=== PATIENT | male | born 1975 | race Hispanic/Latino ===

== ENCOUNTER 2018-05-02 11:17 | Emergency (ER) | payer BC ==
[2018-05-02 11:20] VITALS: BMI 28.5
--- NOTE | 2018-05-02 12:29 | ED PDOC ---
HPI: Psych/Substance Abuse Time Seen by Provider: 05/02/18 11:50 Chief Complaint (Nursing): Psychiatric Evaluation Additional Complaint(s): 42 y/o M with no PMH presents for psych evaluation due to depression/anxiety. 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 He has no actual thoughts of suicide nor does he have a plan but he has been having thoughts of what life would be life if he were not alive. Denies HI, visual or auditory hallucinations. Denies asthma, HTN, HL, DM. Past Medical History Reviewed: Historical Data, Nursing Documentation, Vital Signs Vital Signs: Last Vital Signs Temp 98.5 F 05/02/18 11:20 Pulse 86 05/02/18 11:20 Resp 17 05/02/18 11:20 BP 162/86 H 05/02/18 11:20 Pulse Ox 96 05/02/18 11:20 - Medical History PMH: No Chronic Diseases - Surgical History Surgical History: No Surg Hx - Family History Family History: States: Unknown Family Hx - Living Arrangements Living Arrangements: Alone - Social History Current smoker - smoking cessation education provided: No Ex-Smoker (has not smoked in the last 12 months): No Drugs: Denies - Home Medications Home Medications: Ambulatory Orders Medication Instructions Recorded traZODone [Desyrel] 50 mg PO HS PRN 7 Days tab 05/02/18 - Allergies Allergies/Adverse Reactions: Allergies Allergy/AdvReac Type Severity Reaction Status Date / Time No Known Allergies Allergy Verified 05/02/18 11:27 Review of Systems Cardiovascular: Negative for: Chest Pain, Palpitations Respiratory: Negative for: Cough Gastrointestinal: Negative for: Nausea, Vomiting Physical Exam - Reviewed Nursing Documentation Reviewed: Yes Vital Signs Reviewed: Yes - Physical Exam Appears: Positive for: Well Head Exam: Positive for: ATRAUMATIC Skin: Positive for: Normal Color Eye Exam: Positive for: Normal appearance Neck: Positive for: Supple Cardiovascular/Chest: Positive for: Regular Rate, Rhythm Respiratory: Positive for: Normal Breath Sounds Neurologic/Psych: Positive for: Alert, Oriented, Mood/Affect (flat) - ECG O2 Sat by Pulse Oximetry: 96 Medical Decision Making Medical Decision Making: Crisis evaluation Disposition - Clinical Impression Clinical Impression: Depression - Patient ED Disposition Is Patient to be Admitted: No Counseled Patient/Family Regarding: Diagnosis, Need For Followup, Rx Given - Disposition Disposition: Routine/Home Disposition Time: 12:45 Condition: STABLE Additional Instructions: FOLLOW UP WITH PSYCHIATRIST: DR. KIMBERLY DAI [address] [place], [place] [phone] FOLLOW UP WITH PSYCHOLOGIST: GIANNI YOUNG [address] [facility] [phone] YOU CAN ALSO FOLLOW UP WITH: [facility] [address] [phone] FRIDAY-FRIDAY FROM 9AM-8PM FRIDAY AND FRIDAY FROM 10AM-6PM Prescriptions: traZODone [Desyrel] 50 mg PO HS PRN 7 Days tab PRN Reason: Insomnia Instructions: Depression, Adult (DC) Forms: [employer] (Slovak), [facility] ED School/Work Excuse Print Language: BARBADIAN
[2018-05-02 14:41] VITALS: BP 122/78; PULSE 82; RESP 18; TEMP 98
[2018-05-04 21:36] VITALS: O2SAT 96
== END 2018-05-02 12:45 | disposition home or self-care (01) ==
LOC: H.ER 11:17
DX: F32.9 Major depressive disorder, single episode, unspecified (principal); Z13.31 Encounter for screening for depression; Z79.899 Other long term (current) drug therapy; Z86.59 Personal history of other mental and behavioral disorders; Z87.891 Personal history of nicotine dependence

== ENCOUNTER 2018-05-17 01:15 | Inpatient (IN) | payer BC ==
[2018-05-17 01:20] VITALS: BMI 25.1
--- NOTE | 2018-05-17 02:09 | ED PDOC ---
HPI: Altered Mental Status Time Seen by Provider: 05/17/18 01:18 Chief Complaint (Nursing): Altered Mental Status Chief Complaint (Provider): Altered Mental Status History Per: EMS History/Exam Limitations: Clinical Condition (agitation) Onset/Duration Of Symptoms: Sudden Onset Onset Of Symptoms: Cannot Confirm Onset Current Symptoms Are (Timing): Still Present Additional Complaint(s): 42 year old male arrives to ED with [place] [employer] via EMS for an psychiatric evaluation. As per HPD, his sister called 911 after patient sounded erratic while speaking over the phone. Upon EMS arrival, patient appeared confused with altered mental status. Unable to obtain further medical history secondary to patient's agitated and combative behavior. Of note, patient was seen in this ED on 05/02/18 with diagnosis of depression, stating that he felt extremely overwhelmed and stressed out, then, later discharged with Rx for Trazodone. It is unknown if patient followed up in outpatient therapy or took prescribed medication as advised. PCP: none provided Past Medical History Reviewed: Unable To Obtain - Medical History PMH: Denies: Diabetes, Hepatitis, HIV, HTN, Seizures, Sexually Transmitted Disease - Family History Family History: States: Unknown Family Hx - Home Medications Home Medications: Ambulatory Orders Medication Instructions Recorded traZODone [Desyrel] 50 mg PO HS PRN 7 Days tab 05/02/18 - Allergies Allergies/Adverse Reactions: Allergies Allergy/AdvReac Type Severity Reaction Status Date / Time No Known Allergies Allergy Verified 05/02/18 11:27 Review of Systems Review Of Systems: ROS cannot be obtained secondary to pt's inabilty to answer questions. (agitation) Physical Exam - Reviewed Nursing Documentation Reviewed: Yes Vital Signs Reviewed: Yes - Physical Exam Appears: Positive for: No Acute Distress Head Exam: Positive for: ATRAUMATIC, NORMAL INSPECTION, NORMOCEPHALIC Skin: Positive for: Normal Color Eye Exam: Positive for: Normal appearance, EOMI, PERRL Neck: Positive for: Normal Cardiovascular/Chest: Positive for: Regular Rate, Rhythm Respiratory: Positive for: Normal Breath Sounds. Negative for: Respiratory Distress Extremity: Positive for: Normal ROM (upper/lower) Neurologic/Psych: Positive for: Alert, Mood/Affect (agitated/uncooperative). Negative for: Motor/Sensory Deficits - Laboratory Results Result Diagrams: 05/17/18 02:31 05/17/18 02:31 - Critical Care Total Time (In Min): 30 Documented Critical Care: Time excludes all time spent performint seperately billable procedures Medical Decision Making Medical Decision Making: Initial Impression: 42 year old male with acute agitation in setting of recently diagnosis of depression. Initial Plan: * Labs * Crisis evaluation * Accucheck * 1:1 OBS Time: 0120 --Upon arrival, patient remains agitated and uncooperative. 4-point restraints placed. IM Ativan and Haldol initiated. Time: 137 --Accucheck: 142 mg/dL. Time: 636 --Labs reviewed: no significant clinical abnormality. Upon crisis evaluation, patient will require admission for further treatment of acute depression. Patient is medically stable for psychiatric admission. Counseling was provided and all questions were answered regarding diagnosis. There is agreement to plan of care. Return precautions discussed. Scribe Attestation: Documented by Ying Heredia, acting as a scribe for Luis Eduardo Lares MD. Provider Scribe Attestation: All medical record entries made by the Scribe were at my direction and personally dictated by me. I have reviewed the chart and agree that the record accurately reflects my personal performance of the history, physical exam, medical decision making, and the department course for this patient. I have also personally directed, reviewed, and agree with the discharge instructions and disposition. Disposition - Clinical Impression Clinical Impression: Depression - Patient ED Disposition Is Patient to be Admitted: Yes Counseled Patient/Family Regarding: Studies Performed, Diagnosis - Disposition Disposition Time: 06:37 Condition: STABLE Forms: [employer] (Urdu)
[2018-05-17 02:36] LABS: BASO # 0.1 K/uL (0.0-0.2); BASO % 0.5 % (0.0-2.0); EOS # 0.1 K/uL (0.0-0.7); EOS % 0.7 % (0.0-4.0); HEMOGLOBIN 15.2 g/dL (12.0-18.0); LYMPH # 2.4 K/uL (1.0-4.3); MEAN CORPUSCULAR HEMOGLOBIN 30.2 pg (27.0-31.0); MEAN CORPUSCULAR HGB CONC 32.4 g/dL (33.0-37.0); MEAN PLATELET VOLUME 10.7 fl (7.2-11.7); MONO % 8.6 % (0.0-10.0); NEUT # 7.8 K/uL (1.8-7.0); NEUT % 69.2 % (50.0-75.0); NRBC % 0.1 % (0.0-0.0); RBC 5.04 Mil/uL (4.40-5.90); RED CELL DISTRIBUTION WIDTH 13.6 % (11.5-14.5); WHITE BLOOD COUNT 11.3 K/uL (4.8-10.8)
[2018-05-17 02:39] LABS: PROTHROMBIN TIME 11.2 Seconds (9.8-13.1)
[2018-05-17 02:41] LABS: PARTIAL THROMBOPLASTIN TIME 24.3 Seconds (25.6-37.1)
[2018-05-17 02:44] LABS: ACETAMINOPHEN < 10.0 ug/ml (10.0-30.0); ALB/GLOB RATIO 1.4 (1.0-2.1); ALBUMIN 4.9 g/dL (3.5-5.0); ALT/SGPT 93 U/L (21-72); AST/SGOT 104 U/L (17-59); BLOOD UREA NITROGEN 12 mg/dl (9-20); CALCIUM 9.8 mg/dL (8.4-10.2); GFR NON-AFRICAN AMERICAN > 60; SALICYLATE < 1.0 mg/dl
[2018-05-17] MEDS ORDERED: Alum-Mag Hydrox-Simethicone Susp (30 mL) PO PRN (07:30)
[2018-05-17] MEDS ORDERED: DiphenhydrAMINE 50 mg/ml Inj IM PRN (07:30)
[2018-05-17] MEDS ORDERED: Magnesium Hydroxide Susp 30 ml UD PO PRN (07:30)
[2018-05-17 08:16] VITALS: O2SAT 99
[2018-05-17 08:35] LABS: BARBITURATES, UR NEGATIVE (NEGATIVE); BENZODIAZEPINES, UR NEGATIVE (NEGATIVE); OPIATES, UR NEGATIVE (NEGATIVE); PHENCYCLIDINE, UR NEGATIVE (NEGATIVE)
[2018-05-17 09:58] LABS: URINE BILIRUBIN NEGATIVE (NEGATIVE); URINE BLOOD MODERATE (NEGATIVE); URINE CALCIUM OXALATE CRYSTALS FEW /hpf (<OCC); URINE CLARITY CLOUDY (Clear); URINE COLOR YELLOW (YELLOW); URINE GLUCOSE (UA) NEG (NEGATIVE); URINE LEUKOCYTE ESTERASE NEG Leu/uL (Negative); URINE PROTEIN NEGATIVE (NEGATIVE); URINE UROBILINOGEN 0.2-1.0 mg/dL (0.2-1.0)
--- NOTE | 2018-05-17 10:39 | PCM.PSYCH ---
Initial Psychiatric Evaluation - Initial Psychiatric Evaluation Type of Admission: Voluntary Legal Status: Capacity Chief Complaint (in patient's own words): "I took a bottle of tums." Patient's Reaction to Hospitalization: HPI: 42 yo male w/ h/o depression, presents s/p intentional overdose of a bottle of tums as a suicide attempt. He reports that he has been feeling increasingly depressed, anxious and hopeless. He currently has tangential/circumstantial speech. He reports hearing auditory hallucinations of music a few days ago. He is agreeable to treatment with antidepressants but not an antipsychotic at this time. NO VH/HI. He is able to contract for safety at this time. PPHx: H/o treatment with Prozac while he was in college; no current psychiatric medications or treatment. Denies psychiatric history of admission or previous suicide attempts. PMHx: Glaucoma ALL: NKDA SHx: Denies drugs/etoh/cig use; lives alone Current Medications: Active Medications Generic Name Dose Route Start Last Admin Trade Name Freq PRN Reason Stop Dose Admin Acetaminophen 650 mg 05/17/18 07:30 Tylenol 325mg Tab PO Q4 PRN Pain, moderate (4-7) Al Hydrox/Mg Hydrox/Simethicone 30 ml 05/17/18 07:30 Maalox Plus 30 Ml PO Q4 PRN Dyspepsia Diphenhydramine HCl 50 mg 05/17/18 07:30 Benadryl IM Q6 PRN Extrapyramidal S/S Unable PO Diphenhydramine HCl 50 mg 05/17/18 07:30 Benadryl PO Q6 PRN Extrapyramidal Symptoms Haloperidol 5 mg 05/17/18 07:30 Haldol PO Q4 PRN Agitation Haloperidol Lactate 5 mg 05/17/18 07:30 Haldol IM Q4 PRN Agitation, Unable to Take PO Lorazepam 2 mg 05/17/18 07:30 Ativan IM Q4 PRN Anxiety/Agitation,Unable PO Magnesium Hydroxide 30 ml 05/17/18 07:30 Milk Of Magnesia PO HS PRN Constipation Past Psychiatric History - Past Psychiatric History Pertinent Medical Hx (Current Medical&Sleep Prob, Allergies): Allergies Allergy/AdvReac Type Severity Reaction Status Date / Time No Known Allergies Allergy Verified 05/02/18 11:27 No Known Home Med 05/17/18 Review of Systems - Psychiatric Psychiatric: Abnormal Sleep Pattern, Anxiety, Auditory Hallucinations, Behavioral Changes, Change in Appetite, Depression, Difficulty Concentrating, Hallucinations, Hopelessness, Suicidal Ideation Mental Status Examination - Personal Presentation Personal Presentation: Looks stated age - Affect Affect: Constricted, Depressed - Motor Activity Motor Activity: Psychomotor Agitation - Reliability in Providing Information Reliability in Providing Information: Fair - Speech Speech: Tangential - Mood Mood: Depressed, Anxious - Formal Thought Process Formal Thought Process: Circumstantial - Hallucinations/Delusions Additional comments: Denies acute AH/VH/paranoia - Obsessions/Compulsions Obsessions: No Compulsions: No - Cognitive Functions Orientation: Person, Place, Situation, Time Sensorium: Alert Attention/Concentration: Attentive Judgement: Intact, as evidence by: Insight regarding need for hospitalization Memory: Recent intact, as evidence by: Ability to recall events of the day, Remote intact, as evidenced by: Abilit to recall sig. 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
--- NOTE | 2018-05-17 12:58 | RAD ---
Date of service: 05/17/2018 HISTORY: admit COMPARISON: No prior. FINDINGS: LUNGS: No active pulmonary disease. PLEURA: No significant pleural effusion identified, no pneumothorax apparent. CARDIOVASCULAR: No atherosclerotic calcification present Normal. OSSEOUS STRUCTURES: No significant abnormalities. VISUALIZED UPPER ABDOMEN: Normal. OTHER FINDINGS: None. IMPRESSION: No active disease.
--- NOTE | 2018-05-17 13:43 | CP.PCM.CON ---
History of Present Illness - History of Present Illness History of Present Illness: 42 yo male with history of depression and glaucoma admitted to psyche unit because of suicidal attempt by taking a bottle of Tums Review of Systems - Review of Systems All systems: reviewed and no additional remarkable complaints except (aside from those mentioned above, 12 point system review were negative by me) Past Patient History - Tetanus Immunizations Tetanus Immunization: Unknown - Past Social History Smoking Status: Never Smoked Chewing Tobacco Use: No Cigar Use: No Alcohol: Occasional Drugs: Denies - CARDIAC Hx Cardiac Disorders: No - PULMONARY Hx Tuberculosis: No - NEUROLOGICAL Hx Seizures: No - HEMATOLOGICAL/ONCOLOGICAL Hx Human Immunodeficiency Virus (HIV): No - GENITOURINARY/GYNECOLOGICAL Hx Sexually Transmitted Disorders: No - PSYCHIATRIC Hx Substance Use: No - SURGICAL HISTORY Hx Surgeries: No - ANESTHESIA Hx Anesthesia: No Meds Allergies/Adverse Reactions: Allergies Allergy/AdvReac Type Severity Reaction Status Date / Time No Known Allergies Allergy Verified 05/02/18 11:27 - Medications Medications: Current Medications Al Hydrox/Mg Hydrox/Simethicone (Maalox Plus 30 Ml) 30 ml PO Q4 PRN PRN Reason: Dyspepsia Diphenhydramine HCl (Benadryl) 50 mg IM Q6 PRN PRN Reason: Extrapyramidal S/S Unable PO Diphenhydramine HCl (Benadryl) 50 mg PO Q6 PRN PRN Reason: Extrapyramidal Symptoms Escitalopram Oxalate (Lexapro) 10 mg PO DAILY SHERIF Haloperidol (Haldol) 5 mg PO Q4 PRN PRN Reason: Agitation Haloperidol Lactate (Haldol) 5 mg IM Q4 PRN PRN Reason: Agitation, Unable to Take PO Ibuprofen (Motrin Tab) 400 mg PO Q6 PRN PRN Reason: Pain, moderate (4-7) Lorazepam (Ativan) 2 mg IM Q4 PRN PRN Reason: Anxiety/Agitation,Unable PO Lorazepam (Ativan) 1 mg PO Q8 PRN PRN Reason: Anxiety Last Admin: 05/17/18 11:13 Dose: 1 mg Magnesium Hydroxide (Milk Of Magnesia) 30 ml PO HS PRN PRN Reason: Constipation Risperidone (Risperdal Tab) 0.5 mg PO HS PRN PRN Reason: Psychosis Physical Exam - Constitutional Appears: No Acute Distress - Head Exam Head Exam: ATRAUMATIC - Eye Exam Eye Exam: absent: Scleral icterus - ENT Exam ENT Exam: Mucous Membranes Moist - Neck Exam Neck exam: Negative for: Meningismus - Respiratory Exam Respiratory Exam: absent: Rales, Rhonchi, Wheezes, Respiratory Distress - Cardiovascular Exam Cardiovascular Exam: REGULAR RHYTHM, +S1, +S2 - GI/Abdominal Exam GI & Abdominal Exam: Soft. absent: Tenderness - Rectal Exam Rectal Exam: Deferred - Extremities Exam Extremities exam: Negative for: pedal edema - Back Exam Back exam: NORMAL INSPECTION - Neurological Exam Neurological exam: Alert, Oriented x3 - Psychiatric Exam Psychiatric exam: Normal Mood - Skin Skin Exam: Dry, Intact Results - Vital Signs Recent Vital Signs: Last Vital Signs Temp 98.6 F 05/17/18 10:20 Pulse 88 05/17/18 10:20 Resp 17 05/17/18 10:20 BP 157/74 H 05/17/18 10:20 Pulse Ox 99 05/17/18 07:15 - Labs Result Diagrams: 05/17/18 02:31 05/17/18 02:31 Labs: Laboratory Results - last 24 hr 05/17/18 05/17/18 05/17/18 01:20 02:31 02:31 WBC 11.3 H RBC 5.04 Hgb 15.2 Hct 46.9 MCV 93.0 MCH 30.2 MCHC 32.4 L RDW 13.6 Plt Count 265 MPV 10.7 Neut % (Auto) 69.2 Lymph % (Auto) 21.0 [place] % (Auto) 8.6 Eos % (Auto) 0.7 Baso % (Auto) 0.5 Neut # (Auto) 7.8 H Lymph # (Auto) 2.4 Fannin # (Auto) 1.0 H Eos # (Auto) 0.1 Baso # (Auto) 0.1 PT INR APTT Sodium 136 Potassium 3.6 Chloride 94 L Carbon Dioxide 17 L Anion Gap 29 H BUN 12 Creatinine 1.0 Est GFR ( Amer) > 60 Est GFR (Non-Af Amer) > 60 POC Glucose (mg/dL) 142 H Random Glucose 152 H Calcium 9.8 Magnesium 2.2 Total Bilirubin 0.5 AST 104 H ALT 93 H Alkaline Phosphatase 67 Total Protein 8.3 H Albumin 4.9 Globulin 3.4 Albumin/Globulin Ratio 1.4 Urine Color Urine Clarity Urine pH Ur Specific [place] Urine Protein Urine Glucose (UA) Urine Ketones Urine Blood Urine Nitrate Urine Bilirubin Urine Urobilinogen Ur Leukocyte Esterase Urine RBC (Auto) Urine Microscopic WBC Calcium Oxalate Crystal Hyaline Casts Salicylates Urine Opiates Screen Urine Methadone Screen Acetaminophen Ur Barbiturates Screen Ur Phencyclidine Scrn Ur Amphetamines Screen U Benzodiazepines Scrn U Oth Cocaine Metabols U Cannabinoids Screen Alcohol, Quantitative < 10 05/17/18 05/17/18 05/17/18 02:31 02:31 05:52 WBC RBC Hgb Hct MCV MCH MCHC RDW Plt Count MPV Neut % (Auto) Lymph % (Auto) [place] % (Auto) Eos % (Auto) Baso % (Auto) Neut # (Auto) Lymph # (Auto) [place]ann[place] # (Auto) Eos # (Auto) Baso # (Auto) PT 11.2 INR 1.0 APTT 24.3 L Sodium Potassium Chloride Carbon Dioxide Anion Gap BUN Creatinine Est GFR ( Amer) Est GFR (Non-Af Amer) POC Glucose (mg/dL) Random Glucose Calcium 9.4 Magnesium Total Bilirubin AST ALT Alkaline Phosphatase Total Protein Albumin Globulin Albumin/Globulin Ratio Urine Color Urine Clarity Urine pH Ur Specific [place] Urine Protein Urine Glucose (UA) Urine Ketones Urine Blood Urine Nitrate Urine Bilirubin Urine Urobilinogen Ur Leukocyte Esterase Urine RBC (Auto) Urine Microscopic WBC Calcium Oxalate Crystal Hyaline Casts Salicylates < 1.0 Urine Opiates Screen Urine Methadone Screen Acetaminophen < 10.0 L Ur Barbiturates Screen Ur Phencyclidine Scrn Ur Amphetamines Screen U Benzodiazepines Scrn U Oth Cocaine Metabols U Cannabinoids Screen Alcohol, Quantitative 05/17/18 05/17/18 07:30 07:30 WBC RBC Hgb Hct MCV MCH MCHC RDW Plt Count MPV Neut % (Auto) Lymph % (Auto) [place] % (Auto) Eos % (Auto) Baso % (Auto) Neut # (Auto) Lymph # (Auto) [place] # (Auto) Eos # (Auto) Baso # (Auto) PT INR APTT Sodium Potassium Chloride Carbon Dioxide Anion Gap BUN Creatinine Est GFR ( Amer) Est GFR (Non-Af Amer) POC Glucose (mg/dL) Random Glucose Calcium Magnesium Total Bilirubin AST ALT Alkaline Phosphatase Total Protein Albumin Globulin Albumin/Globulin Ratio Urine Color Yellow Urine Clarity Cloudy Urine pH 6.0 Ur Specific [place] 1.014 Urine Protein Negative Urine Glucose (UA) Neg Urine Ketones 20 Urine Blood Moderate Urine Nitrate Negative Urine Bilirubin Negative Urine Urobilinogen 0.2-1.0 Ur Leukocyte Esterase Neg Urine RBC (Auto) 25 H Urine Microscopic WBC 3 Calcium Oxalate Crystal Few H Hyaline Casts 3-5 H Salicylates Urine Opiates Screen Negative Urine Methadone Screen Negative Acetaminophen Ur Barbiturates Screen Negative Ur Phencyclidine Scrn Negative Ur Amphetamines Screen Negative U Benzodiazepines Scrn Negative U Oth Cocaine Metabols Negative U Cannabinoids Screen Negative Alcohol, Quantitative Assessment & Plan (1) Suicide attempt Status: Acute Comment: psyche is managing (2) Glaucoma Status: Acute Comment: follow up patient's with eye doctor as outpatient
--- NOTE | 2018-05-17 14:19 | PCM.BM ---
<Khai,Adelaide - Last Filed: 05/17/18 14:16> Treatment Plan Problems - Problems identified on initial assessmt Hopelessness/Helplessness Date Initiated: 05/17/18 Time Initiated: 14:17 Assessment reference: NA Status: Active Altered Sleep Patterns Date Initiated: 05/17/18 Time Initiated: 14:17 Assessment reference: NA Status: Active Social Isolation Date Initiated: 05/17/18 Time Initiated: 14:18 Assessment reference: NA Status: Active Treatment assets and liabiliti Patient Assests: educated, good support system Patient Liabilities: live alone - Milieu Protocol Maintain good personal hygiene: daily Encourage regular showers, every shift Remind patient to perform daily oral care, every shift Assist patient to perform ADL's Conduct patient checks and document Observation sheet: Q15 minutes Maintain personal safety: every shift Educate patient to report safety concerns to staff, every shift Monitor environment for contraband/sharps Medication safety: Monitor for expected outcome, potential side effects: every shift, Assess barriers to learning: every shift, Assess readiness for medication education: every shift Milieu Narrative: Major Depressive Disorder w/ Psychotic Features -Admit to psychiatry unit -Medicine consult -Individual and group therapy -Start Lexapro -Pt not agreeable to treatment w/ antipsychotics at this time -Psychoeducation -Disposition planning Discharge/Continuing Care - Treatment Team Participation Patient/Family/SO Statement: Major Depressive Disorder w/ Psychotic Features -Admit to psychiatry unit -Medicine consult -Individual and group therapy -Start Lexapro -Pt not agreeable to treatment w/ antipsychotics at this time -Psychoeducation -Disposition planning <Sarah Beth Snyder - Last Filed: 05/18/18 15:10> Treatment assets and liabiliti Patient Assests: adapts well, cooperative, educated, resourceful, self-reliant, ADL independent, physically healthy, negotiates basic needs, good past tx response (As per collateral collected from pts sister, pt. experienced a similar episode during his freshmen year of college secondary to school related stress and sudden of parents (cancer). Pt. received outpatient mental health services for a short period of time. ), cognitively intact Patient Liabilities: live alone Family Contact Family involvement: Family/SO is involved Family contact: Patient agrees to contact, Family has been contacted by patient, Telephone contact initiated by staff Family contact name: Magda(sister)([phone]) Family contacted how many times per week?: 2 Family contact comment: Mobile Electronics Installer placed call to pts sister to discuss pts progress on 3NP, collect further collateral and address family concerns. Phone rang without option for functional tester typewriters to leave voicemail. Mobile [employer] Installer to attempt call at later time. Dr. Akins has been in cmmunication withpts sister, as per Dr. Akins. Collateral collected - Goals for Treatment Patient goals for treatment: Patient to continue stabilization on 3NP through medication management and group/supportive therapy to address sxs of depression to eliminate sxs of psychosis (organization/spontaneity of thought process, paranoia) and SI. Patient to be encouraged to attend groups regularly to promote self-awareness, reality testing, and improve insight, compliance, coping skills and self-esteem. Patient to be provided with referral for appropriate level of aftercare to reduce risk of future hospitalizations and ensure safety in the community. Pt. identified being able to "handle stressful situations and do well at work" as tx goal. Discharge/Continuing Care - Education Needs Education Needs: Patient Medication, Patient Diagnosis/Disease Process, Patient Coping Skills, Patient Community resources, Patient Aftercare Safety Plan - Discharge Discharge Criteria: Tolerates medication w/o severe side effects, Free of Suicidal thoughts, Free of paranoid thoughts, Normal sleep pattern, Ability to care for self, Other Discharge to:: Home, Other (OPS) - Treatment Team Participation Patient/Family/SO Statement: 05/18/18 15:15 Patient attended tx team this morning to discuss progress of 3NP and tx goals. Pt. continues to report sxs of depression and anxiety and continues to present with sxs of psychosis. Thought process is circumstantial and tangential. Thought blocking and mild psychomotor retardation noted. Responses delayed. Pt. exhibited paranoia towards tx team this morning as exhibited by looking around the room, staring at tx team staff members, hesitating to sign tx plan. Pt. exhibited difficulties providing collateral regarding sxs leading to admission. Pt. denies current SI/HI and is able to contract for safety on 3NP. Pt. discharge focused and requesting to be discharged. Mobile [employer] Installer provided psychoeducation regarding importance of further stabilization to ensure safety and improve functioning in the community and secure appropriate aftercare to r educe risk of future hospitalizations. 48 hour notice, screening process, and possible commitment discussed. Pt. declined. Recommended medication regimen and importance of aftercare discussed at length. Discussed with Family/SO: Yes Was Patient/Family/SO present at Treatment Team Meeting: Yes <Tiera Akins - Last Filed: 05/19/18 12:01> - Diagnosis (1) Depression Status: Acute Interventions: 05/19/18 12:01 psychotherapy pharmacotherapy
--- NOTE | 2018-05-17 21:36 | CARD ---
APPROVED REPORT Date of service: 05/17/2018 EKG Measurement Heart [id number] <Conclusion> Normal sinus rhythm Normal ECG
[2018-05-18 06:15] LABS: BASO % 0.7 % (0.0-2.0); EOS # 0.1 K/uL (0.0-0.7); EOS % 2.2 % (0.0-4.0); HEMOGLOBIN 13.8 g/dL (12.0-18.0); LYMPH # 1.9 K/uL (1.0-4.3); LYMPH % 34.6 % (20.0-40.0); MEAN CELL VOLUME 93.1 fl (80.0-94.0); MEAN CORPUSCULAR HEMOGLOBIN 30.8 pg (27.0-31.0); MEAN CORPUSCULAR HGB CONC 33.1 g/dL (33.0-37.0); MEAN PLATELET VOLUME 9.7 fl (7.2-11.7); MONO # 0.5 K/uL (0.0-0.8); NEUT % 53.5 % (50.0-75.0); NRBC % 0.1 % (0.0-0.0); RBC 4.48 Mil/uL (4.40-5.90); RED CELL DISTRIBUTION WIDTH 13.4 % (11.5-14.5); WHITE BLOOD COUNT 5.6 K/uL (4.8-10.8)
[2018-05-18 06:40] LABS: LDL CHOLESTEROL 87 mg/dL (0-129)
[2018-05-18 06:43] LABS: T4 7.87 ug/dl (5.5-11.0)
[2018-05-18 06:45] LABS: ALB/GLOB RATIO 1.3 (1.0-2.1); ALBUMIN 3.8 g/dL (3.5-5.0); ALT/SGPT 74 U/L (21-72); AST/SGOT 69 U/L (17-59); BLOOD UREA NITROGEN 11 mg/dl (9-20); CALCIUM 9.2 mg/dL (8.4-10.2); GFR NON-AFRICAN AMERICAN > 60; HDL CHOLESTEROL 43 MG/DL (30-70)
--- NOTE | 2018-05-18 14:29 | PCM.PYCHPN ---
Psychiatric Progress Note - Psychiatric Progress Note Patient seen today, length of contact: pt evaluated discussed with team chart reviewed Patient Chief Complaint: I got overwhelmed Problems Identified/Issues Discussed: pt evaluated with treatment team and collateral information obtained from sister upon pt consent pt on evaluation guarded and paranoid, thought process tangential , speech overproductive and not goal directed, pt hesitant about receiving treatment nad medications , psychoeducation provided discussing with patient importance of medication, pt reported poor sleep with intermittent insomnia pt also reporting feeling overwhelmed with pressure at work, low energy anhedonia poor motivation, passive suicidal ideation without active plan to hurt self on the unit' denied command hallucinations, denied side effects of medications Medication Change: Yes (start abilify) Medical Record Reviewed: Yes Mental Status Examination - Cognitive Function Orientation: Person, Place, Situation, Time Attention: Poor Concentration: Poor Association: Loose Decription of patient's judgement and insights: poor insight and fair judgment - Mood Mood: Depressed, Anxious - Affect Affect: Constricted, Depressed - Speech Speech: Soft, Pressured - Formal Thought Process Formal Thought Process: Delusions, Paranoia, Circumstantial - Suicidal Ideation Suicidal Ideation: Yes - Homicidal Ideation Homicidal Ideation: No Goal/Treatment Plan - Goal/Treatment Plan Need for Continued Stay: Severe depression anxiety, Discharge may exacerbated symptoms Progress Toward Problem(s) and Goals/Treatment Plan: continuewith lexapro 10mg start abilify 2mg qhs encourage medication compliance and attending groups
[2018-05-18 18:12] LABS: FOLATE 16.5 ng/mL
[2018-05-18] MEDS ORDERED: Risperidone M tab 1 MG PO SCH (22:00)
--- NOTE | 2018-05-19 12:09 | PCM.PYCHPN ---
Psychiatric Progress Note - Psychiatric Progress Note Patient seen today, length of contact: pt evaluated discussed with team chart reviewed Patient Chief Complaint: I am worried about my work Problems Identified/Issues Discussed: pt evaluated , less anxious speech less pressured and thought process more goal directed , continues to be circumstantial, patient less paranoid and less guarded , continues to be worried about loosing his job, CBT provided discussed with patient the way to challenge automatic negative thoughts, patient receptive to therapy, yet needs continuous reassurance , reported improved sleep, no reported side effects of medications, discussed increasing the dose of abilify to 5mg , pt denied command hallucinations, denied any current thoughts of self harm DSM 5 Symptoms Update: major depression recurrent severe Medication Change: Yes (increase abilify) Medical Record Reviewed: Yes Mental Status Examination - Cognitive Function Orientation: Person, Place, Situation, Time Attention: WNL Concentration: WNL Association: WNL Fund of Knowledge: [facility] Decription of patient's judgement and insights: poor insight and fair judgment - Mood Mood: Depressed, Anxious - Affect Affect: Constricted, Depressed - Speech Speech: Soft, Pressured - Formal Thought Process Formal Thought Process: Delusions, Paranoia, Circumstantial - Suicidal Ideation Suicidal Ideation: No - Homicidal Ideation Homicidal Ideation: No Goal/Treatment Plan - Goal/Treatment Plan Need for Continued Stay: Severe depression anxiety, Discharge may exacerbated symptoms Progress Toward Problem(s) and Goals/Treatment Plan: continue with lexapro 10mg increase abilify 5mg qhs encourage medication compliance and attending groups
[2018-05-21 09:02] VITALS: PULSE 76; RESP 18
--- NOTE | 2018-05-21 11:17 | PCM.PYCHPN ---
Psychiatric Progress Note - Psychiatric Progress Note Patient seen today, length of contact: pt evaluated discussed with team chart reviewed Patient Chief Complaint: I am worried about my job I do not want to loose my job Problems Identified/Issues Discussed: pt evaluated with treatment team, less guarded and less paranoid , more interactive with staff and speech less disorganized , thought process more goal directed, continues to present with anxious mood and affect, continues to feel down, but reported feeling less depressed , rated his depression today /10 compared to 10 on admission, no reported side effects with increasing the abilify CBT provided, discussed with patient positive coping skills with stress other than self harm pt denied any current active thoughts of self harm , denied perceptual disturbances DSM 5 Symptoms Update: major depression recurrent severe Medication Change: No Medical Record Reviewed: Yes Mental Status Examination - Cognitive Function Orientation: Person, Place, Situation, Time Attention: WNL Concentration: WNL Association: WNL Fund of Knowledge: [facility] Decription of patient's judgement and insights: poor insight and fair judgment - Mood Mood: Depressed, Anxious - Affect Affect: Constricted, Depressed - Speech Speech: Soft, Pressured - Formal Thought Process Formal Thought Process: Delusions, Paranoia, Circumstantial - Suicidal Ideation Suicidal Ideation: No - Homicidal Ideation Homicidal Ideation: No Goal/Treatment Plan - Goal/Treatment Plan Need for Continued Stay: Severe depression anxiety, Discharge may exacerbated symptoms Progress Toward Problem(s) and Goals/Treatment Plan: continue with lexapro 10mg abilify 5mg qhs encourage medication compliance and attending groups
--- NOTE | 2018-05-21 14:10 | PCM.PYCHPN ---
Psychiatric Progress Note - Psychiatric Progress Note Patient seen today, length of contact: pt evaluated discussed with team chart reviewed Patient Chief Complaint: I had hard time sleeping last night Problems Identified/Issues Discussed: pt evaluated , family meeting held with sister upon patient consent pt reported better mood, feeling less depressed and less anxious, thought process more clear with clearing off of the paranoid ideas, speech more goal directed CBT provided and patient able to verbalize coping skills with stress , pt continues to report interrupted sleep, discussed adding trazodone pt denied any current active thoughts of self harm , denied perceptual disturbances DSM 5 Symptoms Update: major depression severe Medication Change: No Medical Record Reviewed: Yes Mental Status Examination - Cognitive Function Orientation: Person, Place, Situation, Time Attention: WNL Concentration: WNL Association: WNL Fund of Knowledge: [facility] Decription of patient's judgement and insights: poor insight and fair judgment - Mood Mood: Depressed, Anxious - Affect Affect: Constricted, Depressed - Speech Speech: Soft, Pressured - Formal Thought Process Formal Thought Process: Circumstantial - Suicidal Ideation Suicidal Ideation: No - Homicidal Ideation Homicidal Ideation: No Goal/Treatment Plan - Goal/Treatment Plan Need for Continued Stay: Severe depression anxiety, Discharge may exacerbated symptoms Progress Toward Problem(s) and Goals/Treatment Plan: continue with lexapro 10mg abilify 5mg qhs start trazodone 50mg qhs encourage medication compliance and attending groups
[2018-05-22 09:35] VITALS: BP 153/87; TEMP 98.6
--- NOTE | 2018-05-22 11:52 | PCM.PYCHDC ---
Mental Status Examination - Mental Status Examination Orientation: Person, Place, Situation Memory: Intact Mood: Neutral Affect: Broad Speech: Appropriate Attention: WNL Concentration: WNL Association: WNL Fund of Knowledge: WNL Formal Thought Process: No Impairment Description of patient's judgement and insight: partial insight, fair judgment Psychotic Thoughts and Behaviors: pt on discharge denied any psychotic symptoms, non were elicited Suicidal Ideation: No Current Homicidal Ideation?: No Discharge Summary - Discharge Note Reason for Hospitalization: 42 yo male w/ h/o depression, presents s/p intentional overdose of a bottle of tums as a suicide attempt. He reports that he has been feeling increasingly depressed, anxious and hopeless. He currently has tangential/circumstantial speech. He reports hearing auditory hallucinations of music a few days ago. Consultations:: List each consultation separately and include: 1. Reason for request. 2. Findings. 3. Follow-up Summary of Hospital Course include:: 1. Description of specific treatment plan utilized for patients during their course of treatmen. 2. Summarize the time- course for resolution of acute symptoms and/or regressed behaviors. 3. Describe issues identified and worked on during hospitalization. 4. Describe medication utilized. 5. Describe medical problems identified and treated. 6. Reassessment of suicide risk Summary of Hospital Course: pt on admission was guarded evasive paranoid anxious and depressed patient was started on abilify it was increased to 2mg daily also started on lexapro, it was increased to 10mg daily CBT group and supportive therapy provided pt was compliant with treatment denied side effects , attended groups gradually presented withbrighter affect, and presented with clearing off of the paranoid delusions, more interactive with staff family meeting was held with sister with discussion of treatment plan upon patient consent pt was noted to have a mild elevation in blood pressure, results of Lab tests discussed with him and patient advised to follow up with his PMD on discharge mental status was stable, patient denied any current suicidal or homicidal ideation denied perceptual disturbances follow up arranged by social bee at [facility] outpatient services - Diagnosis (1) Depression Status: Acute - Final Diagnosis (DSM 5) Condition upon Discharge: STABLE DSM 5: Major depression recurrent severe Disposition: HOME/ ROUTINE Follow-up Treatment Plan: continue with lexapro 10mg abilify 5mg qhs start trazodone 50mg qhs encourage medication compliance and attending groups Prescriptions/Medication Reconciliation: ARIPiprazole [Abilify] 5 mg PO HS 30 Days #30 tab Escitalopram [Lexapro] 10 mg PO DAILY 30 Days #30 tab traZODone [Desyrel] 50 mg PO HS 30 Days #30 tab - Antipsychotic Medications Pt discharged on 2 or more routine antipsychotic medications: No
== END 2018-05-22 11:30 | disposition home or self-care (01) | DRG 885 ==
LOC: H.ER 01:15 → H.ERHOLD 06:37 → H.PSYCH 10:32
PROVIDERS: ADMIT Psychiatry & Neurology Psychiatry; ATTEND Psychiatry & Neurology Psychiatry
DX: F33.3 Major depressive disorder, recurrent, severe with psychotic symptoms (principal); H40.9 Unspecified glaucoma; Z91.5 Personal history of self-harm